=== PATIENT | female | born 1965 | race Caucasian/White ===

== ENCOUNTER 2024-01-04 18:25 | Emergency (ER) | payer BC, OTHER ==
[2024-01-04 20:16] LABS: Absolute Basophils 0.1 K/uL (0-0.5); Absolute Eosinophils 0.4 K/uL (0-0.5); Absolute Lymphocytes (CBC) 1.5 K/uL (0.7-4.9); Absolute Monocytes 0.6 K/uL (0.1-1.3); Absolute Neutrophil 3.4 K/uL (1.8-8.0); Basophils % 1.3 % (0-1.3); Eosinophils % 6.5 % (0-4.4); Hematocrit 41.2 % (36.0-45.0); Hemoglobin 14.1 g/dL (12.0-15.0); Lymphocytes % 25.3 % (15.3-44.8); MCHC 34.2 g/dL (32.0-36.0); MCV 90.7 fL (80-100); MPV 6.8 fL (7.6-11.3); Monocytes % 9.5 % (3.3-12.3); Neutrophils % 57.4 % (41.7-73.7); Platelets 261 thou/uL (152-406); RBC Red Blood Cell Count 4.54 M/uL (3.86-4.86); Red Cell Distribution Width 14.1 % (12.1-15.2)
--- NOTE | 2024-01-04 20:56 | RAD REPORT ---
EXAM DESCRIPTION: Gordo Single View01/04/2024 8:45 pm CLINICAL HISTORY: Chest pain COMPARISON: 2010 FINDINGS: The lungs appear clear of acute infiltrate. The heart is normal size IMPRESSION: No acute abnormalities displayed
--- NOTE | 2024-01-04 20:57 | RAD REPORT ---
EXAM DESCRIPTION: RAD - Hip Right 2 View - 01/04/2024 8:45 pm CLINICAL HISTORY: Right hip pain FINDINGS: No fracture or dislocation is seen. No significant bone or joint abnormality noted
[2024-01-04 21:17] LABS: Anion Gap 6.9 mEq/L (5.0-15.0); Potassium 3.9 mEq/L (3.5-5.1); Troponin High Sensitivity 7.9 pg/mL (<58.9)
[2024-01-04] MEDS ORDERED: cloNIDine HCL 0.1 MG TAB ONE (22:07)
--- NOTE | 2024-01-04 22:26 | ER ---
Nurse's Notes [facility] Name: Elo Caba Age: 58 yrs Sex: Female : 1965 Arrival Date: 01/04/2024 Time: 18:25 Bed 11 Private MD: Diagnosis: Essential (primary) hypertension;Chest pain, unspecified Presentation: 01/03 18:36 Chief complaint: Patient states: chest pain x2-3 days, checked her BP today and it was kc6 high so she decided to come here. Coronavirus screen: At this time, the client does not indicate any symptoms associated with coronavirus-19. Ebola Screen: No symptoms or risks identified at this time. Initial Sepsis Screen: Does the patient meet any 2 criteria? No. Patient's initial sepsis screen is negative. Does the patient have a suspected source of infection? No. Patient's initial sepsis screen is negative. Risk Assessment: Do you want to hurt yourself or someone else? Patient reports no desire to harm self or others. Onset of symptoms was January 04, 2024. 18:36 Method Of Arrival: Ambulatory 6 18:36 Acuity: KAYLA 3 kc6 Historical: - Allergies: 18:39 No Known Allergies; kc6 - PMHx: 18:39 Hypertensive disorder; Hyperthyroidism; Gastroesophageal reflux disease; Anxiety; kc6 Depressive disorder; - PSHx: 18:39 gastric sleeve; Cholecystectomy; Arthroplasty of knee; section; neck surgery; kc6 - Immunization history:: Client reports receiving the 2nd dose of the Covid vaccine, Flu vaccine is up to date. - Infectious Disease History:: Denies. - Social history:: Smoking status: Patient denies any tobacco usage or history of. Screenin:29 [facility] ED Fall Risk Assessment (Adult) History of falling in the last 3 months, me1 including since admission No falls in past 3 months (0 pts) Confusion or Disorientation No (0 pts) Intoxicated or Sedated No (0 pts) Impaired Gait No (0 pts) Mobility Assist Device Used No (0 pt) Altered Elimination No (0 pt) Score/Fall Risk Level 0 - 2 = Low Risk Maintained a safe environment, Provided non-skid footwear, Hourly rounding (assess needs \\T\\ fall precautionary measures) done. Abuse screen: Denies threats or abuse. Nutritional screening: No deficits noted. Tuberculosis screening: No symptoms or risk factors identified. Assessment: 19:29 General: Appears comfortable, well groomed, well developed, well nourished, Behavior is me1 calm, cooperative, appropriate for age, Reports chest pain x2-3 days, checked her BP today and it was high so she decided to come here. Pain: Denies pain. Neuro: Level of Consciousness is awake, alert, obeys commands, Oriented to person, place, time, situation, Appropriate for age. Cardiovascular: Patient's skin is warm and dry. Respiratory: Airway is patent Respiratory effort is even, unlabored, Respiratory pattern is regular, symmetrical. GI: No signs and/or symptoms were reported involving the gastrointestinal system. : No signs and/or symptoms were reported regarding the genitourinary system. EENT: No signs and/or symptoms were reported regarding the EENT system. Derm: Skin is intact, is healthy with good turgor, Skin is pink, warm \\T\\ dry. Musculoskeletal: No signs and/or symptoms reported regarding the musculoskeletal system. 20:00 General: Patient states, "maybe my bp is high because I'm in pain. I fell about a year me1 ago and my right hip has given me trouble since then." Informed MARY Adhikari. Vital Signs: 18:36 BP 154 / 103; Pulse 76; Resp 16 S; Temp 98.4(O); Pulse Ox 100% on R/A; Weight 78.47 kg [facility] (R); Height 5 ft. 6 in. (R); Pain 0/10; 19:37 BP 175 / 96; Pulse 77; Resp 16; Pulse Ox 100% on R/A; me1 20:30 BP 160 / 103; Pulse 68; Resp 15; Pulse Ox 100% on R/A; me1 21:30 BP 144 / 100; Pulse 73; Resp 15; Pulse Ox 100% on R/A; me1 22:07 BP 152 / 100; Pulse 64; Resp 16; Pulse Ox 100% on R/A; me1 22:59 BP 148 / 99; Pulse 75; Resp 14; Temp 98.1; Pulse Ox 100% on R/A; me1 18:36 Body Mass Index 27.92 (78.47 kg, 167.64 cm) [facility] 18:36 Pain Scale: Adult kc6 ED Course: 18:28 Patient arrived in ED. ra3 18:29 Nazia Tee FNP-C is PHCP. kb 18:29 Natali Ryan MD is Attending Physician. kb 18:39 Triage completed. kc6 18:39 Arm band placed on. kc6 18:45 EKG completed in triage. Results shown to MD. 6 19:28 Dana Lyons, RN is Primary Nurse. me1 19:29 Patient has correct armband on for positive identification. Bed in low position. Call me1 light in reach. Side rails up X 1. Provided Education on: POC. Verbalized understanding. . Client placed on continuous cardiac and pulse oximetry monitoring. NIBP monitoring applied. ekg monitor on. Pulse ox on. NIBP on. 19:29 No provider procedures requiring assistance completed. Patient maintains SpO2 me1 saturation greater than 95% on room air. 20:04 Basic Metabolic Panel Sent. me1 20:04 CBC with Diff Sent. me1 20:04 Troponin HS Sent. me1 20:04 Initial lab(s) drawn, by me, sent to lab. Inserted saline lock: 22 gauge in right me1 antecubital area, using aseptic technique. 20:47 XRAY Chest (1 view) In Process Unspecified. EDMS 20:47 Hip Right 2 View XRAY In Process Unspecified. EDMS 23:04 IV discontinued, intact, bleeding controlled, No redness/swelling at site. Pressure me1 dressing applied. Administered Medications: 22:12 Drug: cloNIDine PO 0.1 mg PO once Route: PO; me1 22:53 Follow up: Response: No adverse reaction me1 Medication: 19:29 VIS not applicable for this client. me1 Outcome: 22:25 Discharge ordered by . kb 23:04 Discharged to home ambulatory, me1 23:04 Condition: stable 23:04 Discharge instructions given to patient, Instructed on discharge instructions, follow up and referral plans. medication usage, Demonstrated understanding of instructions, follow-up care, medications, Prescriptions given X 1, 23:04 Patient left the ED. me1 Signatures: Dispatcher [employer] EDMS Nazia Tee FNP-C FNP-Ckb Campbell, Kaitlyn, RN RN [facility] Dana Lyons, SOTERO RN me1 Lu Alvarez ra3 Corrections: (The following items were deleted from the chart) 18: 18:39 Home Meds: None; kc6 kc6 18:41 18:39 PMHx: Hypothyroidism; kc6 kc6 19:28 18:36 Chief complaint: Patient states: chest pain x2-3 days, checked her BP today and me1 it was high so she decided to come here kc6
--- NOTE | 2024-01-04 22:26 | EDPHYS ---
Physician Documentation [facility] Name: Elo Caba Age: 58 yrs Sex: Female : 1965 Arrival Date: 01/04/2024 Time: 18:25 Bed 11 Private MD: ED Physician Natali Ryan HPI: 01/03 18:38 This 58 yrs old Female presents to ER via Unassigned with complaints of High Blood kb Pressure, Chest Pain - 2-3days. 18:38 Pt is a 58 year old female who presents for chest pain that started 2-3 days ago. kb States she checked her BP today and it was high so that is what made her decide to come to the ER. States she has a history of HTN but hasn't been taking anything for it in a while due to the hypotension side effect of another medication. States she used to take Bystolic for BP but Dr Nails told her to stop taking it. States she has felt tired and "run down" for the last few days. . Historical: - Allergies: 18:39 No Known Allergies; kc6 - PMHx: 18:39 Hypertensive disorder; Hyperthyroidism; Gastroesophageal reflux disease; Anxiety; kc6 Depressive disorder; - PSHx: 18:39 gastric sleeve; Cholecystectomy; Arthroplasty of knee; section; neck surgery; kc6 - Immunization history:: Client reports receiving the 2nd dose of the Covid vaccine, Flu vaccine is up to date. - Infectious Disease History:: Denies. - Social history:: Smoking status: Patient denies any tobacco usage or history of. ROS: 18:40 Constitutional: As per HPI kb Exam: 18:40 Constitutional: This is a well developed, well nourished patient who is awake, alert, kb and in no acute distress. Head/Face: Normocephalic, atraumatic. ENT: Moist Mucous membranes Cardiovascular: Regular rate Respiratory: Respirations even and unlabored. No increased work of breathing. Talking in full sentences Abdomen/GI: Soft, non-tender. No distention Skin: Warm, dry with normal turgor. Normal color. MS/ Extremity: Pulses equal, no cyanosis. Neurovascular intact. Full, normal range of motion. Neuro: Awake and alert, GCS 15, oriented to person, place, time, and situation. Moves all extremities. Normal gait. 18:45 ECG was reviewed by the Attending Physician. kb Vital Signs: 18:36 BP 154 / 103; Pulse 76; Resp 16 S; Temp 98.4(O); Pulse Ox 100% on R/A; Weight 78.47 kg kc6 (R); Height 5 ft. 6 in. (R); Pain 0/10; 19:37 BP 175 / 96; Pulse 77; Resp 16; Pulse Ox 100% on R/A; me1 20:30 BP 160 / 103; Pulse 68; Resp 15; Pulse Ox 100% on R/A; me1 21:30 BP 144 / 100; Pulse 73; Resp 15; Pulse Ox 100% on R/A; me1 22:07 BP 152 / 100; Pulse 64; Resp 16; Pulse Ox 100% on R/A; me1 22:59 BP 148 / 99; Pulse 75; Resp 14; Temp 98.1; Pulse Ox 100% on R/A; me1 18:36 Body Mass Index 27.92 (78.47 kg, 167.64 cm) [facility] 18:36 Pain Scale: Adult kc6 MDM: 18:29 Patient medically screened. kb 22:24 Data reviewed: vital signs, nurses notes. kb 22:25 Differential diagnosis: hypertensive crisis, Malignant HTN, arrhythmia, mi. Counseling: kb I had a detailed discussion with the patient and/or guardian regarding the historical points, exam findings, and any diagnostic results supporting the discharge/admit diagnosis, lab results, radiology results, the need for outpatient follow up, a family practitioner, to return to the emergency department if symptoms worsen or persist or if there are any questions or concerns that arise at home. 01/03 19:49 Order name: Basic Metabolic Panel; Complete Time: 21:21 kb 01/03 19:49 Order name: CBC with Diff; Complete Time: 20:21 kb 01/03 19:49 Order name: Troponin HS; Complete Time: 21:21 kb 01/03 19:49 Order name: XRAY Chest (1 view) 01/03 20:06 Order name: Hip Right 2 View XRAY 01/03 19:49 Order name: EKG; Complete Time: 19:50 kb 01/03 19:49 Order name: Cardiac monitoring; Complete Time: 20:04 kb 01/03 19:49 Order name: EKG - Nurse/Tech; Complete Time: 20:04 kb 01/03 19:49 Order name: IV Saline Lock; Complete Time: 20:04 kb 01/03 19:49 Order name: Labs collected and sent; Complete Time: 20:04 kb 01/03 19:49 Order name: O2 Per Protocol; Complete Time: 20:04 kb 01/03 19:49 Order name: O2 Sat Monitoring; Complete Time: 20:04 kb EC:45 Rate is 75 beats/min. Rhythm is regular. QRS [place] is Normal. [place] interval is normal at kb 134 msec. QRS interval is normal at 80 msec. QT interval is normal at 448 msec. Administered Medications: 22:12 Drug: cloNIDine PO 0.1 mg PO once Route: PO; me1 22:53 Follow up: Response: No adverse reaction me1 Disposition Summary: 01/04/24 22:25 Discharge Ordered Notes: Location: Home kb Condition: Stable kb Diagnosis - Essential (primary) hypertension kb - Chest pain, unspecified kb Followup: kb - With: Emergency Department - When: As needed - Reason: Worsening of condition Followup: kb - With: Private Physician - When: 2 - 3 days - Reason: Recheck today's complaints, Continuance of care, Re-evaluation by your physician Discharge Instructions: - Discharge Summary Sheet kb - Nonspecific Chest Pain, Adult, [id number] kb - Hypertension, Adult, [id number] kb - Hip Pain kb Forms: - Medication Reconciliation Form kb - Antibiotic Education kb - Prescription Opioid Use kb - Patient Portal Instructions kb - Leadership Thank You Letter kb Prescriptions: - Diclofenac Sodium 75 mg Oral tablet, delayed release (enteric coated) - take 1 tablet ORAL route 2 times per day As needed; 30 tablet; Refills: 0, kb Product Selection Permitted Signatures: Dispatcher [employer] EDUT Nazia Tee FNP-C Rachel Snow RN RN kc6 Dana Lyons, SOTERO RN me1 Corrections: (The following items were deleted from the chart) 18:40 18:38 Pt is a 58 year old female who presents for chest pain that started 2-3 days ago. kb States she checked her BP today and it was high so that is what made her decide to come to the ER. States she has a history of HTN but hasn't been taking anything for it in a while due to the hypotension side effect of another medication. States she used to take Bystolic for BP but Dr Nails told her to stop taking it. . kb 18:41 18:39 Home Meds: None; kc6 kc6 18:41 18:39 PMHx: Hypothyroidism; kc6 kc6 19:50 19:50 BASIC METABOLIC PANEL+C.LAB.BRZ ordered. EDMS EDMS 19:50 19:50 CBC+H.LAB.BRZ ordered. EDMS EDMS 19:50 19:50 Troponin High Sensitivity+C.LAB.BRZ ordered. EDMS EDMS
[2024-01-04 23:38] VITALS: O2SAT 100
[2024-01-04 23:45] VITALS: BP 148/99; TEMP 98.1
--- NOTE | 2024-01-06 12:56 | EKG ---
Test Date: 2024-01-04 Test Time: 18:43:39 [employer]pper: JAY JAY MEASUREMENT RESULTS: Intervals: Rate: 75 UT: 134 QRSD: 80 QT: 402 QTc: 448 [place]: P: 59 UT: 134 QRS: 48 T: 59 INTERPRETIVE STATEMENTS: Normal sinus rhythm Normal ECG No previous ECG available for comparison Electronically Signed On 01-06-24 12:55:11 CDT by Boo Rico
== END 2024-01-04 23:04 | disposition home or self-care (01) ==
LOC: ER 18:25
DX: I10 Essential (primary) hypertension (principal)
CPT/HCPCS: 36415; 71045; 80048; 84484; 85025; 93005; 99285